=== PATIENT | male | born 1995 | race Caucasian/White ===

== ENCOUNTER 2021-11-18 17:36 | Emergency (ER) | payer OTHER ==
[2021-11-18 18:03] LABS: HEMOGLOBIN 16.2 gm/dl (14.0-17.5); RED BLOOD COUNT 5.03 M/UL (4.20-5.50); WHITE BLOOD COUNT 8.1 K/UL (4.5-11.0)
[2021-11-18 18:30] LABS: BUN/CREATININE RATIO 11 (0-10)
[2021-11-18] MEDS ORDERED: ZOFRAN 4 MG TAB4 MG PO (20:28)
== END 2021-11-18 21:00 | disposition home or self-care (01) ==
LOC: ER1 17:36
PROVIDERS: Emergency Medicine
DX: R11.2 Nausea with vomiting, unspecified (principal); R07.9 Chest pain, unspecified; F17.210 Nicotine dependence, cigarettes, uncomplicated
CPT/HCPCS: 71045; 80053; 82550; 82553; 84484; 85025; 93005; 99284